=== PATIENT | male | born 1935 ===

== ENCOUNTER 2021-03-06 09:46 | Outpatient (CLI) | payer SELFPAY | END 2021-03-06 09:47 | disposition EMS.NT | LOC: EMS 09:46 | DX: S80.12XA Contusion of left lower leg, initial encounter (principal); S51.812A Laceration without foreign body of left forearm, initial encounter; W18.39XA Other fall on same level, initial encounter; Y93.01 Activity, walking, marching and hiking; Y92.008 Other place in unspecified non-institutional (private) residence as the place of occurrence of the external cause ==